=== PATIENT | female | born 1980 | race Caucasian/White ===

== ENCOUNTER 2025-03-31 20:06 | Emergency (ER) | payer OTHER ==
[2025-03-31] MEDS: Acetaminophen/oxyCODONE 325-5 MG Tab PO ONE (22:29)
[2025-03-31] MEDS: Ondansetron 4 MG Tab.DIS PO ONE (22:30)
== END 2025-03-31 23:10 | disposition home or self-care (01) ==
LOC: JD.ED 20:06
DX: M54.41 Lumbago with sciatica, right side (principal); Z88.1 Allergy status to other antibiotic agents
CPT/HCPCS: 72132; 72192; 99283; A9270; J7512; 99284

== ENCOUNTER 2025-04-08 17:33 | Emergency (ER) | payer OTHER | END 2025-04-08 19:45 | LOC: JD.ED 17:33 | DX: M54.41 Lumbago with sciatica, right side (principal); R15.9 Full incontinence of feces; Z90.710 Acquired absence of both cervix and uterus; Z88.1 Allergy status to other antibiotic agents | CPT/HCPCS: 99284; 99285 ==